=== PATIENT | female | born 1935 | race Caucasian/White ===

== ENCOUNTER 2016-04-10 14:01 | Outpatient (CLI) | payer OTHER | END 2016-04-10 20:52 | disposition home or self-care (01) | LOC: SRD 14:01 | PROVIDERS: ATTEND Internal Medicine | DX: M77.31 Calcaneal spur, right foot (principal); M20.11 Hallux valgus (acquired), right foot; M17.11 Unilateral primary osteoarthritis, right knee; M19.071 Primary osteoarthritis, right ankle and foot | CPT/HCPCS: 73590-TC ==